=== PATIENT | male | born 1940 | race Caucasian/White ===

== ENCOUNTER 2019-07-01 12:31 | Emergency (ER) | payer MEDICARE, OTHER, SELFPAY ==
[2019-07-01 12:35] VITALS: BP 126/70; PULSE 92; RESP 12; TEMP 36.6; O2SAT 97
--- NOTE | 2019-07-01 12:59 | DI.CT.S_ITS ---
PROCEDURE: CT ABDOMEN PELVIS W CON INDICATIONS: Drainage from prior G-tube insertion site eval for abscess TECHNIQUE: After the administration of oral and intravenous contrast, 5 mm thick sections acquired from the diaphragms to the symphysis. 5 mm thick coronal and sagittal reformats were performed. For radiation dose reduction, the following was used: automated exposure control, adjustment of mA and/or kV according to patient size. COMPARISON: [facility], CT, ABDOMEN/PELVIS WITH CONTRAST, 01/16/2015, 9:15. FINDINGS: Image quality: Excellent. ABDOMEN: Lung bases: Bibasilar small infiltrates/atelectasis is seen. Heart size is normal. Solid organs: Liver is normal in size and enhancement. Gallbladder is surgically absent. Biliary system is chronically distended, unchanged from prior studies dating back to 2014. Pancreas enhances normally. Spleen is normal in size and enhancement. No adrenal nodules. Kidneys are normal in size and enhancement, without hydronephrosis. Peritoneum and bowel: Thickened anterior gastric wall at site of prior G-tube insertion is seen. There is no oral contrast extravasation. Fibrotic scarring in anterior abdominal wall at G-tube site insertion is seen. No discrete drainable fluid collection is identified. There is no bowel obstruction. No small bowel or colon wall thickening. No free fluid or free air. Sigmoid diverticulosis is seen, no CT evidence of diverticulitis. Nodes and vessels: No retroperitoneal or mesenteric adenopathy. Aorta and inferior vena cava are normal in caliber. Miscellaneous: No ventral hernias. PELVIS: Genitourinary: Bladder wall thickness is normal. Miscellaneous: Left inguinal hernia is seen containing fat and small amount of ascites fluid. No inguinal lymphadenopathy. Bones: No suspicious bony lesions. No vertebral body compression fractures. IMPRESSION: 1. Fibrotic changes in left anterior abdominal wall just lateral to the midline at patient's known gastrostomy tube insertion site, small amount of fluid within this area cannot be excluded. No discrete drainable abscess collection. No fistula connection between stomach and abdominal wall is seen. No oral contrast extravasation. 2. Mild anterior gastric wall thickening at the gastrostomy tube insertion site. No other area of bowel wall thickening. No free fluid or free air. 3. Left inguinal hernia containing fat and small amount of ascites fluid. Dictated by: Jamin Tyler M.D. on 07/01/2019 at 15:39 Approved by: Jamin Tyler M.D. on 07/01/2019 at 15:52
[2019-07-01 13:14] LABS: Add Manual Diff / Slide Review NO; Basophils Absolute Auto 0 /uL (0-100); Basophils Percent Auto 0.5 % (0-2); Eosinophils Absolute Auto 0 /uL (0-450); Eosinophils Percent Auto 0.7 % (2-4); Hematocrit 45.5 % (41-53); Hemoglobin 16.1 g/dL (13.5-17.5); Lymphocytes Absolute Auto 700 /uL (1100-4500); Lymphocytes Percent Auto 11.8 % (25-40); Mean Corpuscular HGB Conc 35.3 % (30-36); Mean Corpuscular Hemoglobin 31.7 PG (26-34); Mean Corpuscular Volume 89.7 fL (80-100); Monocytes Absolute Auto 400 /uL (0-900); Monocytes Percent Auto 6.9 % (3-14); Neutrophils Absolute Auto 4800 /uL (1500-7000); Neutrophils Percent Auto 80.1 % (50-75); Platelet Count 175 X10^3/uL (150-400); Red Blood Cell Count 5.08 X10^6/uL (4.5-5.9); Red Cell Distribution Width 14.4 % (11.6-14.8)
--- NOTE | 2019-07-01 13:21 | ED_ITS ---
HPI - General Adult General Chief complaint: Abdominal Pain Stated complaint: Post Op wound Discharge, Sent over from Time Seen by Provider: 07/01/19 12:39 Source: patient Mode of arrival: Ambulatory Limitations: no limitations History of Present Illness HPI narrative: Patient is a 79-year-old male. On December 25, 2018 underwent a laparoscopic paraesophageal hernia repair with mesh and a 270 degree partial fu ndoplication and gastropexy with gastrotomy tube placement. His gastrostomy tube was removed prior to discharge from the hospital. Patient states that the drainage from the site where the tube was placed seem to clear up but then in February of this year he noticed some drainage from it for very short period of time. This also cleared up on its own. Patient states that within the past couple days he noticed more drainage from the area. Has a small amount of pain in the area. Went to an outside facility this morning to have this evaluated but this outside facility stated that they were CT scan was inoperable so the patient was transferred to our emergency department for further evaluation and treatment. Related Data Home Medications Medication Instructions Recorded Confirmed CHOLECALCIFEROL (VITAMIN D) 2,000 iu PO Q DAY #0 07/27/10 aspirin 81 mg PO QDAY #0 12/17/15 Previous Rx's Medication Instructions Recorded fluticasone propionate [Flonase 2 spray INTRANASAL QDAY #1 bot 06/22/16 Allergy Relief] tamsulosin [Flomax] 0.4 mg PO Q DAY #90 cap 08/18/16 finasteride 5 mg PO QDAY #90 tab 09/07/16 lisinopril-hydrochlorothiazide 1 tab PO QDAY #90 tab 11/01/16 cephalexin [Keflex] 1,000 mg PO BID #28 cap 11/03/16 Allergies Allergy/AdvReac Type Severity Reaction Status Date / Time ciprofloxacin [CIPROFLOXACIN] AdvReac Intermediate STOMACH/ELVIRA Verified 07/01/19 15:09 SEA Iodinated Contrast Media AdvReac Intermediate NAUSEA/RALPH Verified 07/01/19 15:09 ING Review of Systems Constitutional Constitutional: Denies fever(s) and Denies headache(s) ENT Ears, Nose, Mouth, and Throat: Denies vertigo and Denies headache(s) Cardiovascular Cardiovascular: Denies chest pain and Denies dyspnea Respiratory Respiratory: Denies dyspnea Gastrointestinal Gastrointestinal: Denies abdominal pain, Denies nausea and Denies vomiting Comments: Drainage from tube site Musculoskeletal Musculoskeletal: Denies myalgias and Denies arthralgias Integumentary/Breasts Comments: Drainage from his G-tube site Neurologic Neurologic: Denies vertigo and Denies headache(s) Hematologic/Lymphatic Hematologic/Lymphatic: Denies easy bleeding and Denies easy bruising Patient History Medical History Acute diverticulitis (Inactive) Essential hypertension (07/15/15) History of cholecystectomy (11/18/15) History of herpes zoster (07/15/15) Thrombocytopenia (07/15/15) UTI (urinary tract infection) (Inactive) Surgical History (Updated 06/12/17 @ 05:19 by Conversion Provider) Status post hernia repair Family History (Updated 07/16/16 @ 00:00 by Conversion Provider) Father Heart disease Hypertension Stroke Social History Smoking Status: Never smoker Smoking Status: Never smoker alcohol intake frequency: other Substance Use Type: does not use Exam Initial Vital Signs Initial Vital Signs: Vital Signs Temperature 97.8 F 07/01/19 12:35 Pulse Rate 92 H 07/01/19 12:35 Respiratory Rate 12 07/01/19 12:35 Blood Pressure 126/70 07/01/19 12:35 Pulse Oximetry 97 07/01/19 12:35 Const General: cooperative and comfortable Limitations: mental status not altered HENMT Head: normal to inspection and normocephalic Resp Effort & Inspection: normal respiratory effort Auscultation: clear to auscultation bilaterally Cardio Rate: regular rate Rhythm: regular rhythm GI Inspection: non-distended Palpation: soft and No firm Skin Other: Left upper quadrant has a small wound consistent with prior G-tube site. Has surrounding granulation tissue. Also has black Neuro General: alert and awake Extrem General: capillary refill normal Psych Appearance: grossly normal and well kempt Course Orders Ordered: ED Orders 07/01/19 12:59 CT abdomen pelvis w con Stat 07/01/19 13:06 Complete Blood Count AUTO DIFF Stat Comprehensive Metabolic Panel Stat Lipase Stat Discontinued Medications Diphenhydramine HCl (Benadryl) 25 mg IV NOW ONE Stop: 07/01/19 13:22 Last Admin: 07/01/19 14:02 Dose: 25 mg Documented by: WIN Sodium Chloride (Normal Saline 0.9%) 1,000 mls @ 1,000 mls/hr IV BOLUS ONE Stop: 07/01/19 13:57 Last Infusion: 07/01/19 15:09 Dose: 0 mls/hr Documented by: Admin: 07/01/19 13:43 Dose: 1,000 mls/hr Documented by: WIN Methylprednisolone (Solu-Medrol 125 Mg Vial) 40 mg IV NOW ONE Stop: 07/01/19 13:22 Last Admin: 07/01/19 14:03 Dose: 40 mg Documented by: WIN Vital Signs Vital signs: Vital Signs - 8 hr 07/01/19 12:35 07/01/19 13:30 07/01/19 15:15 Temperature 97.8 F Pulse Rate 92 H 63 74 Respiratory Rate 12 17 19 Blood Pressure 126/70 Blood Pressure [Right Arm] 142/68 H 151/68 H Pulse Oximetry 97 100 99 Medical Decision Making Lab Data Lab results reviewed: Yes I reviewed the patient's lab results. Result diagrams: 07/01/19 13:06 07/01/19 13:06 Labs: Lab Results 07/01/19 07/01/19 Range/Units 13:06 13:06 WBC 6.0 (4.5-11.0) X10^3/uL RBC 5.08 (4.5-5.9) X10^6/uL Hgb 16.1 (13.5-17.5) g/dL Hct 45.5 (41-53) % MCV 89.7 (80-100) fL MCH 31.7 (26-34) PG MCHC 35.3 (30-36) % RDW 14.4 (11.6-14.8) % Plt Count 175 (150-400) X10^3/uL Neut % (Auto) 80.1 H (50-75) % Lymph % (Auto) 11.8 L (25-40) % [place] % (Auto) 6.9 (3-14) % Eos % (Auto) 0.7 L (2-4) % Baso % (Auto) 0.5 (0-2) % Neut # (Auto) 4800 (2783-3989) /uL Lymph # (Auto) 700 L (5074-7925) /uL [place] # (Auto) 400 (0-900) /uL Eos # (Auto) 0 (0-450) /uL Baso # (Auto) 0 (0-100) /uL Sodium 138 (137-145) mmol/L Potassium 3.8 (3.4-5.1) mmol/L Chloride 104 (98-107) mmol/L Carbon Dioxide 24 (22-32) mmol/L BUN 14 (9-20) mg/dL Creatinine 0.92 (0.66-1.25) mg/dL Estimated GFR > 60.0 (>60) mL/min BUN/Creatinine Ratio 15.2 (6-22) Glucose 149 H (80-110) mg/dL Calcium 9.6 (8.4-10.2) mg/dL Total Bilirubin 1.5 H (0.2-1.3) mg/dL AST 33 (17-59) IU/L ALT 25 (<50) IU/L Alkaline Phosphatase 98 (38-126) U/L Total Protein 7.2 (6.3-8.2) g/dL Albumin 4.3 (3.5-5.0) g/dL Globulin 2.9 (1.7-4.1) g/dL Albumin/Globulin Ratio 1.5 (1.0-2.8) Lipase 22 L (23-300) U/L Imaging Data CT scan - abdomen/pelvis: Radiologist's Impression: [place] [address] CT Scan Report Signed Patient: NaveenAlf R#: [id number] : 1Acct:[id number] Age/Sex: 79 / MDate of Service: 07/01/19 Loc: ED Accession Number: [id number] Procedure: CT abdomen pelvis w con Ordering Provider: Alf Cardenas D.O. PROCEDURE: CT ABDOMEN PELVIS W CON INDICATIONS: Drainage from prior G-tube insertion site eval for abscess TECHNIQUE: After the administration of oral and intravenous contrast, 5 mm thick sections acquired from the diaphragms to the symphysis. 5 mm thick coronal and sagittal reformats were performed. For radiation dose reduction, the following was used: automated exposure control, adjustment of mA and/or kV according to patient size. COMPARISON: [facility], CT, ABDOMEN/PELVIS WITH CONTRAST, 01/16/2015, 9:15. FINDINGS: Image quality: Excellent. ABDOMEN: Lung bases: Bibasilar small infiltrates/atelectasis is seen. Heart size is normal. Solid organs: Liver is normal in size and enhancement. Gallbladder is surgically absent. Biliary system is chronically distended, unchanged from prior studies dating back to 2014. Pancreas enhances normally. Spleen is normal in size and enhancement. No adrenal nodules. Kidneys are normal in size and enhancement, without hydronephrosis. Peritoneum and bowel: Thickened anterior gastric wall at site of prior G-tube insertion is seen. There is no oral contrast extravasation. Fibrotic scarring in anterior abdominal wall at G-tube site insertion is seen. No discrete drainable fluid collection is identified. There is no bowel obstruction. No small bowel or colon wall thickening. No free fluid or free air. Sigmoid diverticulosis is seen, no CT evidence of diverticulitis. Nodes and vessels: No retroperitoneal or mesenteric adenopathy. Aorta and inferior vena cava are normal in caliber. Miscellaneous: No ventral hernias. PELVIS: Genitourinary: Bladder wall thickness is normal. Miscellaneous: Left inguinal hernia is seen containing fat and small amount of ascites fluid. No inguinal lymphadenopathy. Bones: No suspicious bony lesions. No vertebral body compression fractures. IMPRESSION: 1. Fibrotic changes in left anterior abdominal wall just lateral to the midline at patient's known gastrostomy tube insertion site, small amount of fluid within this area cannot be excluded. No discrete drainable abscess collection. No fistula connection between stomach and abdominal wall is seen. No oral contrast extravasation. 2. Mild anterior gastric wall thickening at the gastrostomy tube insertion site. No other area of bowel wall thickening. No free fluid or free air. 3. Left inguinal hernia containing fat and small amount of ascites fluid. Dictated by: Jamin Tyler M.D. on 07/01/2019 at 15:39 Approved by: Jamin Tyler M.D. on 07/01/2019 at 15:52 MDM Narrative Medical decision making narrative: Discussed the CT findings with Dr. Sinha who was on-call for General surgery. He stated that no emergent surgical intervention needed for his clinical presentation or secondary to the CT scan results. Patient is afebrile. No indication for antibiotics. Informed the patient that he needed to contact his operative provider to discuss further workup. He expressed understanding and agreement. Discharge Plan Departure Patient Disposition: Home Clinical Impression: Post-operative complication Qualifiers: Surgical complication system/body Area: [id number] Activity Restrictions/Additional Instructions: Recommend that you contact the surgeon who performed your operation to schedule a follow-up. You do have a small amount of granulation tissue around the opening. I do recommend that you cover this with a bandage. Return to the emergency department for any new or worsening symptoms Prescriptions: No Action CHOLECALCIFEROL (VITAMIN D) 2,000 iu PO Q DAY Qty: 0 RF: 0 aspirin 81 MG tablet,chewable 81 mg PO QDAY Qty: 0 RF: 0 fluticasone propionate [Flonase Allergy Relief] 9.9 ML spray,suspension 2 spray Intranasal QDAY Qty: 1 RF: 1 tamsulosin [Flomax] 0.4 MG capsule,extended release 24hr 0.4 mg PO Q DAY Qty: 90 RF: 1 finasteride 5 MG tablet 5 mg PO QDAY Qty: 90 RF: 0 lisinopril-hydrochlorothiazide 10 MG/12.5 MG tablet 1 tab PO QDAY Qty: 90 RF: 1 cephalexin [Keflex] 500 MG capsule 1,000 mg PO BID Qty: 28 RF: 0
[2019-07-01 13:30] VITALS: BP 142/68; PULSE 63; PULSE 68; RESP 16; RESP 17; O2SAT 100; O2SAT 98
--- NOTE | 2019-07-01 13:35 | PC.NURSE ---
PO contrast started
[2019-07-01] MEDS: SODIUM CHLORIDE 0.9% 1,000 ML 1000 ML IV (13:43)
[2019-07-01] MEDS: diphenhydrAMINE 50 MG/ML VIAL 25 MG IV (14:02)
[2019-07-01] MEDS: methylPREDNISolone 125 MG/2 ML VIAL 40 MG IV (14:03)
[2019-07-01 14:41] LABS: Alanine Aminotransferase 25 IU/L (<50); Albumin 4.3 g/dL (3.5-5.0); Albumin Globulin Ratio 1.5 (1.0-2.8); Alkaline Phosphatase 98 U/L (38-126); Aspartate Aminotransferase 33 IU/L (17-59); BUN Creatinine Ratio 15.2 (6-22); Bilirubin Total 1.5 mg/dL (0.2-1.3); Blood Urea Nitrogen 14 mg/dL (9-20); Calcium 9.6 mg/dL (8.4-10.2); Carbon Dioxide 24 mmol/L (22-32); Chloride 104 mmol/L (98-107); Estimated Glomerular Filt Rate > 60.0 mL/min (>60); Globulin 2.9 g/dL (1.7-4.1); Glucose 149 mg/dL (80-110); HEMOLYSIS 22 (0-50); Lipase 22 U/L (23-300); Potassium 3.8 mmol/L (3.4-5.1); Sodium 138 mmol/L (137-145); Total Protein 7.2 g/dL (6.3-8.2)
[2019-07-01 15:15] VITALS: BP 151/68; PULSE 74; RESP 19; O2SAT 99
[2019-07-01 16:00] VITALS: BP 140/70; PULSE 77; RESP 16; O2SAT 100
[2019-07-01 17:30] VITALS: BP 142/78; PULSE 73; RESP 17; O2SAT 99
== END 2019-07-01 17:50 | disposition home or self-care (01) ==
PROVIDERS: Emergency Provider Emergency Medicine
DX: T81.9XXA Unspecified complication of procedure, initial encounter (principal); G89.18 Other acute postprocedural pain
CPT/HCPCS: 36415; 74177; 80053; 83690; 85025; 96361; 96374; 96375; 99284; 99285; J1200; J2930; Q9967

== ENCOUNTER → 2020-12-13 08:21 | Outpatient (CLI) | payer MEDICARE, OTHER, SELFPAY ==
--- NOTE | 2020-12-13 | DI.NM.S_ITS ---
PROCEDURE: TN BONE SCAN WHOLE BODY RADIOPHARMACEUTICAL: 20.6 mCi Tc-99m MDP IV. INDICATIONS: Malignant neoplasm of prostate TECHNIQUE: Delayed whole-body scintigrams were obtained approximately 3-4 hours after intravenous injection of radiotracer. Anterior and posterior views were acquired from vertex to feet. Additional left and right oblique views of the pelvis were obtained. COMPARISON: Outside Film, CR, XR HUMERUS LEFT, 09/23/2019, 9:02. Outside Film, CT, CT CHEST WITHOUT CONTRAST, 09/23/2019, 8:58. [facility], CT, CT CHEST ABD PEL W CON, 12/13/2020, 9:40. Outside Film, NM, NM BONE SCAN WHOLE BODY, 09/04/2019, 15:37. FINDINGS: There is a small focus of mildly increased uptake in the 7th rib posterior laterally, unchanged. Mildly increased uptake is also seen in the left humeral shaft, also unchanged. Low-level increased uptake in maxilla is likely related to dental disease. No lesions are identified in skull, sternum, clavicles, scapulae, or bony pelvis. There is low level increased uptake in thoracic and lumbar spine with distribution indistinguishable from degenerative disc and facet disease; early metastasis to spine could be obscured by degenerative changes. There are foci of increased periarticular activity involving shoulders, sternoclavicular joints, hips, knees, ankles and feet, compatible with degenerative/arthritic changes. IMPRESSION: 1. Stable foci of mildly increased uptake involving the posterior lateral aspect of the right 7th rib and the left humeral shaft. 2. Degenerative changes as noted. Dictated by: Tevin Cheema M.D. on 12/13/2020 at 14:42 Approved by: Tevin Cheema M.D. on 12/13/2020 at 17:11
--- NOTE | 2020-12-13 | DI.CT.S_ITS ---
PROCEDURE: CT CHEST ABD PEL W CON INDICATIONS: Malignant neoplasm of prostate TECHNIQUE: After the administration of oral and intravenous contrast, axial sections acquired from the supraclavicular neck to the pubic symphysis. Coronal and sagittal reformats were performed. For radiation dose reduction, the following was used: automated exposure control, adjustment of mA and/or kV according to patient size. COMPARISON:[facility], CT, CT CHEST W CON, 09/21/2015, 21:57. Outside Film, NM, NM BONE SCAN WHOLE BODY, 09/04/2019, 15:37. [facility], CT, CT ABDOMEN PELVIS W CON, 07/01/2019, 14:40. Outside Film, CT, CT CHEST ABDOMEN WITHOUT CONTRAST, 12/26/2018, 10:19. Outside Film, CT, CT CHEST WITHOUT CONTRAST, 12/22/2018, 9:01. Outside Film, CT, CT ABDOMEN PELVIS WITH CONTRAST, 12/21/2018, 6:11. Outside Film, CT, CT ABDOMEN PELVIS WITH CONTRAST, 11/06/2017, 18:14. [facility], CT, CT ABD PANCREATIC PROTOCOL, 09/23/2015, 22:26. Outside Film, CT, CT CHEST WITHOUT CONTRAST, 09/23/2019, 8:58. FINDINGS: Image quality: Excellent. CHEST: Lower Neck: No enlarged lymph nodes. Thyroid: Within normal limits. Axillae: No enlarged lymph nodes. Chest Wall: Unremarkable. Lungs and Airways: Areas of scarring granulomas are noted without interval change. No consolidations. More focal area of scarring and/or atelectasis is noted in the right base. Pleura: No pneumothorax or pleural effusions. Heart: Heart size is normal. No pericardial effusion. Thoracic Vessels: The aorta and pulmonary arteries demonstrate normal size. Mediastinum and Sindhu: No enlarged lymph nodes. Esophagus: No wall thickening. Prominent hiatal hernia. ABDOMEN: Liver: Liver is mildly prominent with steatosis. Gallbladder: A gallbladder has been removed. Biliary ducts: Unremarkable. Pancreas: Unremarkable. Spleen: Unremarkable. Adrenal Glands: Unremarkable. Kidneys and Ureters: Nonobstructing left renal calculus is present. Stomach and Bowel: Stomach, small bowel loops, and colon are unremarkable. Prominent colonic stool is present without obstruction. Colonic diverticula are present without inflammatory change. Peritoneum: No abnormal intraperitoneal fluid. No free air. Ventral Wall: No hernia. Abdominal Nodes: No retroperitoneal or mesenteric adenopathy by size criteria. Vessels: Aorta and inferior vena cava are normal in size. PELVIS: Pelvic Organs: Unremarkable. Bladder: Unremarkable. Pelvic Nodes: No enlarged lymph nodes. Miscellaneous: Fat containing inguinal hernias are present. Bones: Previous area of slight lucency within the posterior lateral right 7th rib is unchanged. Lucent focus with peripheral density in the lateral left 7th rib is stable. Unchanged lucency at the anterior aspect of the L3 vertebral body. Hemangioma at T8 is stable. IMPRESSION: 1. Stable interval exam demonstrating no evidence of recurrent or residual disease. 2. Diverticulosis. 3. Unchanged nonobstructing left renal calculus. 4. Mild hepatic prominence with steatosis. Dictated by: Meena Seaman M.D. on 12/13/2020 at 12:26 Approved by: Meena Seaman M.D. on 12/13/2020 at 13:16
[2020-12-13 09:14] LABS: Alanine Aminotransferase 27 IU/L (<50); Albumin 4.2 g/dL (3.5-5.0); Albumin Globulin Ratio 1.6 (1.0-2.8); Alkaline Phosphatase 95 U/L (38-126); Aspartate Aminotransferase 31 IU/L (17-59); BUN Creatinine Ratio 18.2 (6-22); Bilirubin Total 1.2 mg/dL (0.2-1.3); Blood Urea Nitrogen 14 mg/dL (9-20); Calcium 9.7 mg/dL (8.4-10.2); Carbon Dioxide 28 mmol/L (22-32); Chloride 103 mmol/L (98-107); Estimated Glomerular Filt Rate > 60.0 mL/min (>60); Globulin 2.6 g/dL (1.7-4.1); Glucose 109 mg/dL (80-110); HEMOLYSIS < 15 (0-50); Potassium 3.3 mmol/L (3.4-5.1); Sodium 140 mmol/L (137-145); Total Protein 6.8 g/dL (6.3-8.2)
== END ==
PROVIDERS: PCP Family Medicine; Referring Provider Urology; Visit Provider Urology
DX: C61 Malignant neoplasm of prostate (principal); K76.0 Fatty (change of) liver, not elsewhere classified; K57.90 Diverticulosis of intestine, part unspecified, without perforation or abscess without bleeding; N20.0 Calculus of kidney; Z90.49 Acquired absence of other specified parts of digestive tract
CPT/HCPCS: 36415; 71260; 74177; 78306; 80053; A9503

== ENCOUNTER 2021-01-16 13:25 | Emergency (ER) | payer MEDICARE, OTHER, SELFPAY ==
[2021-01-16 13:50] VITALS: BP 167/79; PULSE 94; RESP 19; TEMP 36.5; O2SAT 97; BMI 25.0
--- NOTE | 2021-01-16 14:04 | DI.CT.S_ITS ---
PROCEDURE: CT ABDOMEN PELVIS W CON INDICATIONS: left pelvis, LLq pain radiating to testicle. h/o prostate CA TECHNIQUE: After the administration of oral and IV contrast, axial sections were acquired from the lung bases to the pubic symphysis. Coronal and sagittal reformats were performed. For radiation dose reduction, the following was used: automated exposure control, adjustment of mA and/or kV according to patient size. COMPARISON: [facility], CT, CT ABDOMEN PELVIS W CON, 07/01/2019, 14:40. FINDINGS: Image quality: Excellent. Lung bases: There is mild scarring redemonstrated in the lung bases. Heart: Heart is normal in size. There is a small to moderate hiatal hernia. ABDOMEN: Liver: There is mild focal fatty infiltration anteriorly in the left hepatic lobe. Gallbladder: Gallbladder is surgically absent. Biliary ducts: Unremarkable. Pancreas: Unremarkable. Spleen: Unremarkable. Adrenal Glands: Unremarkable. Kidneys and Ureters: There is a nonobstructing stone within the inferior pole of the left kidney measuring to 0.9 cm. No hydronephrosis. Stomach and Bowel: Stomach and small bowel loops demonstrate normal caliber and wall thickness. There is colonic diverticulosis without definite acute diverticulitis. Mild segmental wall thickening is demonstrated in the sigmoid colon suggestive of a mild colitis. Peritoneum: No abnormal intraperitoneal fluid. No free air. Ventral Wall: No hernia. Abdominal Nodes: No retroperitoneal or mesenteric adenopathy by size criteria. Vessels: Aorta and inferior vena cava are normal in size. PELVIS: Pelvic Organs: Unremarkable. Bladder: Unremarkable. Pelvic Nodes: No enlarged lymph nodes. Miscellaneous: There is a small fat-containing left inguinal hernia. Bones: Visualized osseous structures demonstrate no suspicious focal lesions. IMPRESSION: 1. Segmental wall thickening in the sigmoid colon suggestive of a mild colitis. 2. Colonic diverticulosis without definite acute diverticulitis. 3. Small to moderate hiatal hernia. 4. Left nephrolithiasis without obstructive uropathy. Dictated by: Darinel Villarreal M.D. on 01/16/2021 at 13:55 Approved by: Darinel Villarreal M.D. on 01/16/2021 at 14:02
[2021-01-16 14:26] LABS: Add Manual Diff / Slide Review NO; Basophils Absolute Auto 0 /uL (0-100); Basophils Percent Auto 0.3 % (0-2); Eosinophils Absolute Auto 0 /uL (0-450); Eosinophils Percent Auto 0.5 % (2-4); Hematocrit 45.1 % (41-53); Hemoglobin 15.7 g/dL (13.5-17.5); Lymphocytes Absolute Auto 700 /uL (1100-4500); Lymphocytes Percent Auto 9.2 % (25-40); Mean Corpuscular HGB Conc 34.9 % (30-36); Mean Corpuscular Hemoglobin 30.4 PG (26-34); Mean Corpuscular Volume 87.2 fL (80-100); Monocytes Absolute Auto 300 /uL (0-900); Monocytes Percent Auto 4.4 % (3-14); Neutrophils Absolute Auto 6300 /uL (1500-7000); Neutrophils Percent Auto 85.6 % (50-75); Platelet Count 143 X10^3/uL (150-400); Red Blood Cell Count 5.17 X10^6/uL (4.5-5.9); Red Cell Distribution Width 13.4 % (11.6-14.8); White Blood Cell Count 7.3 X10^3/uL (4.5-11.0)
[2021-01-16 14:37] LABS: Alanine Aminotransferase 37 IU/L (<50); Albumin 4.4 g/dL (3.5-5.0); Albumin Globulin Ratio 1.6 (1.0-2.8); Alkaline Phosphatase 96 U/L (38-126); Aspartate Aminotransferase 34 IU/L (17-59); BUN Creatinine Ratio 16.1 (6-22); Bilirubin Total 1.4 mg/dL (0.2-1.3); Blood Urea Nitrogen 14 mg/dL (9-20); Calcium 10.2 mg/dL (8.4-10.2); Carbon Dioxide 33 mmol/L (22-32); Chloride 105 mmol/L (98-107); Estimated Glomerular Filt Rate > 60.0 mL/min (>60); Globulin 2.7 g/dL (1.7-4.1); Glucose 107 mg/dL (80-110); HEMOLYSIS 16 (0-50); Potassium 3.3 mmol/L (3.4-5.1); Sodium 143 mmol/L (137-145); Total Protein 7.1 g/dL (6.3-8.2)
[2021-01-16] MEDS: SODIUM CHLORIDE 0.9% 1,000 ML 150 ML IV (15:13)
--- NOTE | 2021-01-16 16:32 | ED_ITS ---
HPI - General Adult General Chief complaint: Urogenital-Male Stated complaint: GROIN/PELVIC/LOW BACK PAIN Time Seen by Provider: 01/16/21 14:03 Source: patient Mode of arrival: Family Vehicle Limitations: no limitations History of Present Illness HPI narrative: 80-year-old gentleman with a history of recently diagnosed prostate cancer currently being treated with Lupron presents with left flank pain and left post erior iliac crest pain radiating into the left testicle. He describes no nausea, vomiting, diarrhea, overt abdominal pain, chest pain, palpitations, fevers. Related Data Home Medications Medication Instructions Recorded Confirmed CHOLECALCIFEROL (VITAMIN D) 2,000 iu PO Q DAY #0 07/27/10 08/02/20 aspirin 81 mg chewable tablet 81 mg PO QDAY #0 12/17/15 08/02/20 ascorbic acid (vitamin C) 500 mg 500 mg PO DAILY 05/20/20 08/02/20 tablet (Vitamin C) omega-3 fatty acids 1 cap PO DAILY 05/20/20 08/02/20 vitamin B complex 1 cap PO DAILY 05/20/20 08/02/20 zinc 25 mg tablet 25 mg PO DAILY 05/20/20 08/02/20 Previous Rx's Medication Instructions Recorded fluticasone propionate 50 2 spray INTRANASAL QDAY #1 bot 06/22/16 mcg/actuation nasal spray,suspension (Flonase Allergy Relief) tamsulosin 0.4 mg capsule (Flomax) 0.4 mg PO Q DAY #90 cap 08/18/16 lisinopril 10 1 tab PO QDAY #90 tab 11/01/16 mg-hydrochlorothiazide 12.5 mg tablet amoxicillin 875 mg-potassium 1 tab PO BID #20 tab 01/16/21 clavulanate 125 mg tablet (Augmentin) Allergies Allergy/AdvReac Type Severity Reaction Status Date / Time ciprofloxacin [CIPROFLOXACIN] AdvReac Intermediate STOMACH/ELVIRA Verified 07/01/19 15:09 SEA Iodinated Contrast Media AdvReac Intermediate NAUSEA/RALPH Verified 07/01/19 15:09 ING Review of Systems Review of Systems Narrative: Remainder of complete review of systems is otherwise unremarkable except for that included in the HPI. Patient History Medical History (Updated 01/16/21 @ 16:43 by Zeenat Nguyen MD) Acute diverticulitis Essential hypertension (07/15/15) History of cholecystectomy (11/18/15) History of herpes zoster (07/15/15) Thrombocytopenia (07/15/15) UTI (urinary tract infection) Surgical History (Updated 06/12/17 @ 05:19 by Conversion Provider) Status post hernia repair Family History (Updated 07/16/16 @ 00:00 by Conversion Provider) Father Heart disease Hypertension Stroke Social History Smoking Status: Never smoker alcohol intake: never substance use type: former substance user (stopped at the age of 37 years of age. 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 ) Smoking Status: Never smoker alcohol intake frequency: other Substance Use Type: does not use Exam Narrative Exam Narrative: General: Healthy appearing, in no acute distress. Able to give a complete and coherent history. Well-nourished well-developed HEENT: Moist mucous membranes, normal sclera with reactive pupils, Neck: No JVD, supple Respiratory: Lungs are clear to auscultation, no wheezing no rales no rhonchi. Full and symmetrical air movement Cardiac: Regular rate and rhythm no murmurs no bruits Abdomen: Soft, nontender, good bowel tones, tenderness over left posterior iliac crest, into the left flank, left testicle is high riding but not particularly tender to palpation. No inguinal/groin pain. Skin: Warm and dry, no rashes Neurologic: Grossly neurologically intact with no obvious asymmetries or abnormalities Extremities: No trauma, well perfused Psych: Cooperative, appropriate insight and affect Initial Vital Signs Initial Vital Signs: Vital Signs Temperature 97.7 F 01/16/21 13:50 Pulse Rate 94 H 01/16/21 13:50 Respiratory Rate 19 01/16/21 13:50 Blood Pressure 167/79 H 01/16/21 13:50 Pulse Oximetry 97 01/16/21 13:50 Course Orders Ordered: ED Orders 01/16/21 14:04 CT abdomen pelvis w con Stat 01/16/21 14:10 Complete Blood Count AUTO DIFF Stat Comprehensive Metabolic Panel Stat Sodium Chloride (Normal Saline 0.9%) 1,000 mls @ 150 mls/hr IV CONT MICHI Last Admin: 01/16/21 15:13 Dose: 150 mls/hr Documented by: ANAYELI Vital Signs Vital signs: Vital Signs - 8 hr 01/16/21 13:50 Temperature 97.7 F Pulse Rate 94 H Respiratory Rate 19 Blood Pressure 167/79 H Pulse Oximetry 97 Medical Decision Making Lab Data Result diagrams: 01/16/21 14:10 01/16/21 14:10 Labs: Lab Results 01/16/21 01/16/21 Range/Units 14:10 14:10 WBC 7.3 (4.5-11.0) X10^3/uL RBC 5.17 (4.5-5.9) X10^6/uL Hgb 15.7 (13.5-17.5) g/dL Hct 45.1 (41-53) % MCV 87.2 (80-100) fL MCH 30.4 (26-34) PG MCHC 34.9 (30-36) % RDW 13.4 (11.6-14.8) % Plt Count 143 L (150-400) X10^3/uL Neut % (Auto) 85.6 H (50-75) % Lymph % (Auto) 9.2 L (25-40) % Elliott % (Auto) 4.4 (3-14) % Eos % (Auto) 0.5 L (2-4) % Baso % (Auto) 0.3 (0-2) % Neut # (Auto) 6300 (8639-0913) /uL Lymph # (Auto) 700 L (3540-6269) /uL Elliott # (Auto) 300 (0-900) /uL Eos # (Auto) 0 (0-450) /uL Baso # (Auto) 0 (0-100) /uL Sodium 143 (137-145) mmol/L Potassium 3.3 L (3.4-5.1) mmol/L Chloride 105 (98-107) mmol/L Carbon Dioxide 33 H (22-32) mmol/L BUN 14 (9-20) mg/dL Creatinine 0.87 (0.66-1.25) mg/dL Estimated GFR > 60.0 (>60) mL/min BUN/Creatinine Ratio 16.1 (6-22) Glucose 107 (80-110) mg/dL Calcium 10.2 (8.4-10.2) mg/dL Total Bilirubin 1.4 H (0.2-1.3) mg/dL AST 34 (17-59) IU/L ALT 37 (<50) IU/L Alkaline Phosphatase 96 (38-126) U/L Total Protein 7.1 (6.3-8.2) g/dL Albumin 4.4 (3.5-5.0) g/dL Globulin 2.7 (1.7-4.1) g/dL Albumin/Globulin Ratio 1.6 (1.0-2.8) Imaging Data CT scan - abdomen/pelvis: Radiologist's Impression: FINDINGS:? Image quality:? Excellent.? ? Lung bases:? There is mild scarring redemonstrated in the lung bases.? ? Heart:? Heart is normal in size.? There is a small to moderate hiatal hernia. ? ? ABDOMEN: Liver:? There is mild focal fatty infiltration anteriorly in the left hepatic lobe. Gallbladder:? Gallbladder is surgically absent.? ? Biliary ducts:? Unremarkable.? ? Pancreas:? Unremarkable.? ? Spleen:? Unremarkable.? ? Adrenal Glands:? Unremarkable.? ? Kidneys and Ureters:? There is a nonobstructing stone within the inferior pole of the left kidney measuring to 0.9 cm.? No hydronephrosis. ? Stomach and Bowel:? Stomach and small bowel loops demonstrate normal caliber and wall thickness.? There is colonic diverticulosis without definite acute diverticulitis.? Mild segmental wall thickening is demonstrated in the sigmoid colon suggestive of a mild colitis. Peritoneum:? No abnormal intraperitoneal fluid.? No free air.? ? Ventral Wall: ? No hernia.? Abdominal Nodes:? No retroperitoneal or mesenteric adenopathy by size criteria.? Vessels:? Aorta and inferior vena cava are normal in size.? ? PELVIS: Pelvic Organs:? Unremarkable.? ? Bladder:? Unremarkable.? ? Pelvic Nodes: No enlarged lymph nodes.? Miscellaneous:? There is a small fat-containing left inguinal hernia. ? Bones:? Visualized osseous structures demonstrate no suspicious focal lesions.? IMPRESSION:? ? 1. Segmental wall thickening in the sigmoid colon suggestive of a mild colitis. ? 2. Colonic diverticulosis without definite acute diverticulitis. ? 3. Small to moderate hiatal hernia. ? 4.? Left nephrolithiasis without obstructive uropathy. ? ? Dictated by: Darinel Villarreal M.D. on 01/16/2021 at 13:55? ?? MDM Narrative Medical decision making narrative: 80-year-old gentleman with left flank pain. Recent diagnosis of prostate cancer and due for his Lupron shot tomorrow. On physical exam concern for bony metastasis verses pyelonephritis verses kidney stone. CT returns with left nephro lithiasis (0.9 cm stone in the inferior pole of the kidney) without obstructive uropathy and a probable developing colitis. He does have a history of diverticulitis and when this possibility a shared with him he agrees that that is in fact what his diverticulitis has felt like previously. At this point there is no evidence of sepsis, pyelonephritis or need for surgical intervention or hospitalization. He has not tolerated Cipro well in the past so will place him on Augmentin b.i.d. for 10 days. He is safe for home discharge Discharge Plan Departure Patient Disposition: Home Clinical Impression: Diverticulitis Instructions: DI for Diverticulitis Activity Restrictions/Additional Instructions: Thank you for coming in today Your lab work was very reassuring. Your CT scan suggests that you may be developing a mild colitis or diverticulitis in the left lower quadrant. There is no evidence of an abscess, kidney stone or kidney infection. I am going to start you on Augmentin, and antibiotic to be taken twice a day for the next 10 days. If you find that you are getting worse, please return to the ER. Prescriptions: New amoxicillin-pot clavulanate [Augmentin] 875-125 mg tablet 1 tab PO BID Qty: 20 0RF No Action CHOLECALCIFEROL (VITAMIN D) 2,000 iu PO Q DAY Qty: 0 0RF aspirin 81 MG tablet,chewable 81 mg PO QDAY Qty: 0 0RF fluticasone propionate [Flonase Allergy Relief] 9.9 ML spray,suspension 2 spray Intranasal QDAY Qty: 1 1RF tamsulosin [Flomax] 0.4 MG capsule,extended release 24hr 0.4 mg PO Q DAY Qty: 90 1RF lisinopril-hydrochlorothiazide 10 MG/12.5 MG tablet 1 tab PO QDAY Qty: 90 1RF ascorbic acid (vitamin C) [Vitamin C] 500 mg Tablet 500 mg PO DAILY 0RF zinc 25 mg Tablet 25 mg PO DAILY 0RF vitamin B complex [B Complex] Capsule 1 cap PO DAILY 0RF Fish Oil Capsule 1 cap PO DAILY 0RF Referrals: Kenton Jacob MD [Primary Care Provider] -
[2021-01-16] MEDS: AMOXICILLIN/CLAV 875/125 MG 1 TAB PO (16:51)
[2021-01-16 19:18] LABS: Appearance Urine UA CLEAR; Bilirubin Urine UA NEGATIVE (NEGATIVE); Color Urine UA YELLOW; Glucose Urine UA NEGATIVE (Negative); Ketones Urine UA NEGATIVE (NEGATIVE); Leukocyte Esterase Urine UA NEGATIVE (NEGATIVE); Nitrite Urine UA NEGATIVE (Negative); Occult Blood Urine UA NEGATIVE (Negative); Protein Urine UA NEGATIVE (Negative); Urobilinogen Urine UA 0.2 E.U./dL (0.2)
[2021-01-16 19:27] LABS: Calcium Oxalate Crystals Urine Few; RBC Urine None Seen (0-5/HPF); Squamous Epithelial Cell Urine 0-1 /HPF (0-5/HPF); WBC Urine None Seen (0-5/HPF)
[2021-01-16 19:28] LABS: Bacteria Urine None Seen; Culture Indicated Urine Cult Not Indicated; Mucus Urine 1+ (Negative); Uric Acid Crystals Urine Few
== END 2021-01-16 16:56 | disposition home or self-care (01) ==
PROVIDERS: Emergency Provider Emergency Medicine; PCP Family Medicine
DX: K57.32 Diverticulitis of large intestine without perforation or abscess without bleeding (principal)
CPT/HCPCS: 36415; 74177; 80053; 81001; 81003; 85025; 96360; 96361; 99284; Q9967

== ENCOUNTER 2021-02-17 13:58 | Emergency (ER) | payer MEDICARE, OTHER, SELFPAY ==
[2021-02-17 14:35] VITALS: BP 131/57; PULSE 94; RESP 14; TEMP 36.2; O2SAT 96; BMI 25.8
--- NOTE | 2021-02-17 19:21 | ED.NAVMDI ---
HPI - Nausea/Vomiting/Diarrhea General Chief complaint: Nausea/Vomiting/Diarrhea Stated complaint: NVD Time Seen by Provider: 02/17/21 19:10 Source: patient Mode of arrival: Ambulatory History of Present Illness HPI Narrative: Patient is an 80-year-old male with history of prostate cancer currently on Lupron treatment. History of has had 1 episode of vomiting today couple episodes of diarrhea. Sherrill like he might pass out earlier today. He maybe ate some bad food but he actually opened new cream cheese steal cut Reji and a new milk container. [place] come into the ED. He has had no further episodes of nausea vomiting. He has had a little bit of diarrhea no significant abdominal pain. He denies any chest pain shortness of breath or fever. He has not had anything to eat since 10:00 a.m. but is overall feeling better and has kept liquids down. Related Data Home Medications Medication Instructions Recorded Confirmed CHOLECALCIFEROL (VITAMIN D) 2,000 iu PO Q DAY #0 07/27/10 08/02/20 aspirin 81 mg chewable tablet 81 mg PO QDAY #0 12/17/15 08/02/20 ascorbic acid (vitamin C) 500 mg 500 mg PO DAILY 05/20/20 08/02/20 tablet (Vitamin C) omega-3 fatty acids 1 cap PO DAILY 05/20/20 08/02/20 vitamin B complex 1 cap PO DAILY 05/20/20 08/02/20 zinc 25 mg tablet 25 mg PO DAILY 05/20/20 08/02/20 Previous Rx's Medication Instructions Recorded fluticasone propionate 50 2 spray INTRANASAL QDAY #1 bot 06/22/16 mcg/actuation nasal spray,suspension (Flonase Allergy Relief) tamsulosin 0.4 mg capsule (Flomax) 0.4 mg PO Q DAY #90 cap 08/18/16 lisinopril 10 1 tab PO QDAY #90 tab 11/01/16 mg-hydrochlorothiazide 12.5 mg tablet amoxicillin 875 mg-potassium 1 tab PO BID #20 tab 01/16/21 clavulanate 125 mg tablet (Augmentin) Allergies Allergy/AdvReac Type Severity Reaction Status Date / Time ciprofloxacin [CIPROFLOXACIN] AdvReac Intermediate STOMACH/ELVIRA Verified 02/17/21 14:35 SEA Iodinated Contrast Media AdvReac Intermediate NAUSEA/RALPH Verified 02/17/21 14:35 ING Review of Systems Review of Systems Narrative: GENERAL: Denies chills, fatigue, malaise, fever, sweats, travel HEENT: Denies sinus pain, ear pain, sore throat, difficulty swallowing, neck pain RESPIRATORY: Denies dyspnea, cough, wheezing, hemoptysis, sputum. CARDIOVASCULAR: Denies chest pain, palpitations, orthopnea, edema GASTROINTESTINAL: See HPI : Denies dysuria, frequency, incontinence, hematuria, urinary retention, flank pain. MUSCULOSKELETAL: Denies weakness, joint pain, or bony pain SKIN: No rash, no erythema, no pruritus NEUROLOGIC: Denies weakness, dizziness, headache, numbness, change in speech, confusion PSYCHIATRIC: No concerning psychosocial issues. 12 point review of systems is negative except for those stated above and HPI Patient History Medical History (Updated 02/17/21 @ 20:42 by Addie Taylor DO) Acute diverticulitis Essential hypertension (07/15/15) History of cholecystectomy (11/18/15) History of herpes zoster (07/15/15) Thrombocytopenia (07/15/15) UTI (urinary tract infection) Surgical History (Updated 06/12/17 @ 05:19 by Conversion Provider) Status post hernia repair Family History (Updated 07/16/16 @ 00:00 by Conversion Provider) Father Heart disease Hypertension Stroke Social History Smoking Status: Never smoker alcohol intake: never substance use type: former substance user (stopped at the age of 37 years of age. 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 ) Smoking Status: Never smoker alcohol intake frequency: other Substance Use Type: does not use Exam Initial Vital Signs Initial Vital Signs: Vital Signs Temperature 97.2 F L 02/17/21 14:35 Pulse Rate 94 H 02/17/21 14:35 Respiratory Rate 14 02/17/21 14:35 Blood Pressure 131/57 L 02/17/21 14:35 Pulse Oximetry 96 02/17/21 14:35 GENERAL: Alert well-appearing 80-year-old male HEENT: Head atraumatic,EOMI, pupils reactive, face symmetric, moist mucous membranes CARDIOVASCULAR: Regular rate and rhythm without murmurs, rubs or gallops. RESPIRATORY: Breath sounds equal bilaterally, no wheezes rales or rhonchi. ABDOMEN: Soft, nontender. Normoactive bowel sounds all 4 quadrants. No guarding or rebound. EXTREMITIES: Normal range of motion, no clubbing or edema. Neurovascularly intact NEUROLOGICAL: Alert and oriented x4.Normal gait and speech. SKIN: Warm, dry, no laceration, no petechiae, no rashes or lesions. Course Orders Ordered: ED Orders 02/17/21 20:02 CBC Auto Diff [Complete Blood Count AUTO DIFF] Stat CMP [Comprehensive Metabolic Panel] Stat Discontinued Medications Sodium Chloride (Normal Saline 0.9%) 1,000 mls @ 1,000 mls/hr IV BOLUS ONE Stop: 02/17/21 20:16 Last Infusion: 02/17/21 20:50 Dose: 0 mls/hr Documented by: Admin: 02/17/21 19:36 Dose: 1,000 mls/hr Documented by: INDY Vital Signs Vital signs: Vital Signs - 8 hr 02/17/21 19:30 02/17/21 20:30 Pulse Rate 78 66 Respiratory Rate 18 18 Blood Pressure 138/70 133/72 Pulse Oximetry 98 98 MDM - Nausea/Vomiting/Diarrhea Lab Data Result diagrams: 02/17/21 20:02 02/17/21 20:02 Labs: Lab Results 02/17/21 02/17/21 Range/Units 20:02 20:02 WBC 9.7 (4.5-11.0) X10^3/uL RBC 4.81 (4.5-5.9) X10^6/uL Hgb 14.7 (13.5-17.5) g/dL Hct 42.1 (41-53) % MCV 87.7 (80-100) fL MCH 30.6 (26-34) PG MCHC 34.9 (30-36) % RDW 13.2 (11.6-14.8) % Plt Count 126 L (150-400) X10^3/uL Neut % (Auto) 89.2 H (50-75) % Lymph % (Auto) 4.3 L (25-40) % Fajardo % (Auto) 6.1 (3-14) % Eos % (Auto) 0.4 L (2-4) % Baso % (Auto) 0.0 (0-2) % Neut # (Auto) 8700 H (1807-8352) /uL Lymph # (Auto) 400 L (1802-4403) /uL Fajardo # (Auto) 600 (0-900) /uL Eos # (Auto) 0 (0-450) /uL Baso # (Auto) 0 (0-100) /uL Sodium 138 (137-145) mmol/L Potassium 3.6 (3.4-5.1) mmol/L Chloride 104 (98-107) mmol/L Carbon Dioxide 29 (22-32) mmol/L BUN 15 (9-20) mg/dL Creatinine 0.91 (0.66-1.25) mg/dL Estimated GFR > 60.0 (>60) mL/min BUN/Creatinine Ratio 16.5 (6-22) Glucose 126 H (80-110) mg/dL Calcium 9.4 (8.4-10.2) mg/dL Total Bilirubin 1.9 H (0.2-1.3) mg/dL AST 27 (17-59) IU/L ALT 24 (<50) IU/L Alkaline Phosphatase 74 (38-126) U/L Total Protein 6.2 L (6.3-8.2) g/dL Albumin 3.7 (3.5-5.0) g/dL Globulin 2.5 (1.7-4.1) g/dL Albumin/Globulin Ratio 1.5 (1.0-2.8) MDM Narrative Medical decision making narrative: Patient is overall feeling significantly better. He has not had significant fluid loss. Tolerating p.o. fluids. Abdomen remains soft at this time no indication for any imaging. He is having both vomiting and diarrhea consistent with gastroenteritis. Discharge Plan Departure Patient Disposition: Home Clinical Impression: Gastroenteritis Instructions: DI for Viral Gastroenteritis -- Adult Activity Restrictions/Additional Instructions: 1) You have been diagnosed with gastroenteritis 2) What to do: Drink frequent but small amounts of fluids. I recommend Gatorade or a Gatorade-like product, as it has small amounts of sugar and salts that improve fluid retention. 3) Take medications as directed 4) Follow up with your primary care provider in 2-3 days 5) Return to ER if you should have any new or worsening symptoms such as, unable to hold down fluids despite use of anti-nausea medications and the small volume oral rehydration strategy. Prescriptions: No Action CHOLECALCIFEROL (VITAMIN D) 2,000 iu PO Q DAY Qty: 0 0RF aspirin 81 MG tablet,chewable 81 mg PO QDAY Qty: 0 0RF fluticasone propionate [Flonase Allergy Relief] 9.9 ML spray,suspension 2 spray Intranasal QDAY Qty: 1 1RF tamsulosin [Flomax] 0.4 MG capsule,extended release 24hr 0.4 mg PO Q DAY Qty: 90 1RF lisinopril-hydrochlorothiazide 10 MG/12.5 MG tablet 1 tab PO QDAY Qty: 90 1RF ascorbic acid (vitamin C) [Vitamin C] 500 mg Tablet 500 mg PO DAILY 0RF zinc 25 mg Tablet 25 mg PO DAILY 0RF vitamin B complex [B Complex] Capsule 1 cap PO DAILY 0RF Fish Oil Capsule 1 cap PO DAILY 0RF amoxicillin-pot clavulanate [Augmentin] 875-125 mg tablet 1 tab PO BID Qty: 20 0RF Referrals: Kenton Jacob MD [Primary Care Provider] -
[2021-02-17 19:30] VITALS: BP 138/70; PULSE 78; RESP 18; O2SAT 98
[2021-02-17] MEDS: SODIUM CHLORIDE 0.9% 1,000 ML 1000 ML IV (19:36)
[2021-02-17 20:13] LABS: Add Manual Diff / Slide Review NO; Basophils Absolute Auto 0 /uL (0-100); Eosinophils Absolute Auto 0 /uL (0-450); Eosinophils Percent Auto 0.4 % (2-4); Hematocrit 42.1 % (41-53); Hemoglobin 14.7 g/dL (13.5-17.5); Lymphocytes Absolute Auto 400 /uL (1100-4500); Lymphocytes Percent Auto 4.3 % (25-40); Mean Corpuscular HGB Conc 34.9 % (30-36); Mean Corpuscular Hemoglobin 30.6 PG (26-34); Mean Corpuscular Volume 87.7 fL (80-100); Monocytes Absolute Auto 600 /uL (0-900); Monocytes Percent Auto 6.1 % (3-14); Neutrophils Absolute Auto 8700 /uL (1500-7000); Neutrophils Percent Auto 89.2 % (50-75); Platelet Count 126 X10^3/uL (150-400); Red Blood Cell Count 4.81 X10^6/uL (4.5-5.9); Red Cell Distribution Width 13.2 % (11.6-14.8); White Blood Cell Count 9.7 X10^3/uL (4.5-11.0)
[2021-02-17 20:22] LABS: Alanine Aminotransferase 24 IU/L (<50); Albumin 3.7 g/dL (3.5-5.0); Albumin Globulin Ratio 1.5 (1.0-2.8); Alkaline Phosphatase 74 U/L (38-126); Aspartate Aminotransferase 27 IU/L (17-59); BUN Creatinine Ratio 16.5 (6-22); Bilirubin Total 1.9 mg/dL (0.2-1.3); Blood Urea Nitrogen 15 mg/dL (9-20); Calcium 9.4 mg/dL (8.4-10.2); Carbon Dioxide 29 mmol/L (22-32); Chloride 104 mmol/L (98-107); Estimated Glomerular Filt Rate > 60.0 mL/min (>60); Globulin 2.5 g/dL (1.7-4.1); Glucose 126 mg/dL (80-110); HEMOLYSIS < 15 (0-50); Potassium 3.6 mmol/L (3.4-5.1); Sodium 138 mmol/L (137-145); Total Protein 6.2 g/dL (6.3-8.2)
[2021-02-17 20:30] VITALS: BP 133/72; PULSE 66; RESP 18; O2SAT 98
== END 2021-02-17 20:55 | disposition home or self-care (01) ==
PROVIDERS: Emergency Provider Emergency Medicine; PCP Family Medicine
DX: K52.9 Noninfective gastroenteritis and colitis, unspecified (principal)
CPT/HCPCS: 36415; 80053; 85025; 96360; 99283; 99284

== ENCOUNTER 2021-04-11 10:30 | Emergency (ER) | payer MEDICARE, OTHER, SELFPAY ==
[2021-04-11] VITALS (9 sets, daily range): BP systolic 107–172; BP diastolic 60–88; PULSE 69–86; RESP 14–36; TEMP 36.6; O2SAT 96–99
--- NOTE | 2021-04-11 10:54 | DI.RAD.S_ITS ---
PROCEDURE: XR CHEST 1V INDICATIONS: chest pain TECHNIQUE: One view of the chest was acquired. COMPARISON: [facility], JUDD, CHEST 2 VIEW, 04/13/2014, 11:09. FINDINGS: Surgical changes and devices: None. Lungs and pleura: Lungs are clear. No pleural effusions or pneumothorax. Mediastinum: Mediastinal contours appear normal. Heart size is normal. Bones and chest wall: No suspicious bony lesions. Overlying soft tissues appear unremarkable. IMPRESSION: No acute cardiopulmonary findings Approved by: Aravind Bah M.D. on 04/11/2021 at 11:09
[2021-04-11 11:04] LABS: Add Manual Diff / Slide Review NO; Basophils Absolute Auto 0 /uL (0-100); Basophils Percent Auto 0.5 % (0-2); Eosinophils Absolute Auto 100 /uL (0-450); Eosinophils Percent Auto 1.7 % (2-4); Hematocrit 42.7 % (41-53); Hemoglobin 14.4 g/dL (13.5-17.5); Lymphocytes Absolute Auto 800 /uL (1100-4500); Lymphocytes Percent Auto 15.1 % (25-40); Mean Corpuscular HGB Conc 33.7 % (30-36); Mean Corpuscular Hemoglobin 29.9 PG (26-34); Mean Corpuscular Volume 88.6 fL (80-100); Monocytes Absolute Auto 300 /uL (0-900); Monocytes Percent Auto 5.6 % (3-14); Neutrophils Absolute Auto 4300 /uL (1500-7000); Neutrophils Percent Auto 77.1 % (50-75); Platelet Count 162 X10^3/uL (150-400); Red Blood Cell Count 4.82 X10^6/uL (4.5-5.9); Red Cell Distribution Width 13.4 % (11.6-14.8); White Blood Cell Count 5.5 X10^3/uL (4.5-11.0)
[2021-04-11 11:06] LABS: Prothrombin Time 10.8 SECONDS (10.1-12.7)
[2021-04-11 11:09] LABS: PTT Partial Thromboplastin Tim 24 SECONDS (26.4-36.2)
[2021-04-11 11:10] LABS: Alanine Aminotransferase 25 IU/L (<50); Albumin 3.8 g/dL (3.5-5.0); Albumin Globulin Ratio 1.5 (1.0-2.8); Alkaline Phosphatase 73 U/L (38-126); Aspartate Aminotransferase 30 IU/L (17-59); BUN Creatinine Ratio 18.9 (6-22); Blood Urea Nitrogen 18 mg/dL (9-20); Calcium 9.5 mg/dL (8.4-10.2); Carbon Dioxide 28 mmol/L (22-32); Chloride 107 mmol/L (98-107); Creatine Kinase 63 U/L (55-170); Estimated Glomerular Filt Rate > 60.0 mL/min (>60); Globulin 2.6 g/dL (1.7-4.1); Glucose 149 mg/dL (80-110); HEMOLYSIS 20 (0-50); Lipase 40 U/L (23-300); Magnesium 2.3 mg/dL (1.6-2.3); Potassium 3.2 mmol/L (3.4-5.1); Sodium 140 mmol/L (137-145); Total Protein 6.4 g/dL (6.3-8.2)
[2021-04-11 11:22] LABS: Troponin I < 0.012 ng/mL (0.01-0.034)
--- NOTE | 2021-04-11 11:24 | PC.NURSE ---
Tammy CARTYW called, Laura CARTYW at oncology to F/U regarding appointment transportation troubles.
--- NOTE | 2021-04-11 11:26 | PC.NURSE ---
Happened with BM
--- NOTE | 2021-04-11 11:27 | CM.SWNOTE ---
[facility] ED consult received for pt in the ER due to difficulty getting to appointments and pt just started with [facility] AYALA with Dr. Gonsales and lives on [address]. SW called Laura, Oncologist TAB[facility] TYPIST and she kindly confirms that she is willing to look into the pt's needs and help provide him with resources if she can. BERTA called ED RN and updated on Onc TABULAR TYPIST to f/u with pt's needs. FRANCESCA Longo
[2021-04-11 12:00] LABS: COVID19 -Nasal RAPID Negative (Negative)
--- NOTE | 2021-04-11 20:45 | ED_ITS ---
HPI - Dizziness <Reanna Elias PA-C - Last Filed: 04/12/21 13:15> General Chief Complaint: Syncope Stated Complaint: Diarrhea, dizzy, feeling faint Time Seen by Provider: 04/11/21 12:11 Source: patient Mode of arrival: Ambulatory History of Present Illness HPI Narrative: 81-year-old male with past medical history prostate cancer, hyperlipidemia presents to the ED for lightheadedness for 1 day. Patient states that he had a [place] and something sweet to eat which he does not usually eat, following which he started feeling lightheaded, sweaty and felt like he needed to have a bowel movement. Patient went to the bathroom, had some diarrhea, continue to feel lightheaded for the next 20 minutes, after which his symptoms all resolved. Patient denies any other symptoms including fever, chills, chest pain, shortness of breath, nausea, vomiting, abdominal pain, dysuria, flank pain, syncope. Patient denies prior episodes of lightheadedness. Patient states that he gets Lupron shots for the prostate cancer, which give him milder symptoms such as hot flashes, and he feels that today's episode just felt like a more intense version of those. Related Data Home Medications Medication Instructions Recorded Confirmed CHOLECALCIFEROL (VITAMIN D) 2,000 iu PO Q DAY #0 07/27/10 04/11/21 aspirin 81 mg chewable tablet 81 mg PO QDAY #0 12/17/15 04/11/21 ascorbic acid (vitamin C) 500 mg 500 mg PO DAILY 05/20/20 04/11/21 tablet (Vitamin C) omega-3 fatty acids 1 cap PO DAILY 05/20/20 04/11/21 vitamin B complex 1 cap PO DAILY 05/20/20 04/11/21 zinc 25 mg tablet 25 mg PO DAILY 05/20/20 04/11/21 Previous Rx's Medication Instructions Recorded fluticasone propionate 50 2 spray INTRANASAL QDAY #1 bot 06/22/16 mcg/actuation nasal spray,suspension (Flonase Allergy Relief) tamsulosin 0.4 mg capsule (Flomax) 0.4 mg PO Q DAY #90 cap 08/18/16 lisinopril 10 1 tab PO QDAY #90 tab 11/01/16 mg-hydrochlorothiazide 12.5 mg tablet Allergies Allergy/AdvReac Type Severity Reaction Status Date / Time ciprofloxacin [CIPROFLOXACIN] AdvReac Intermediate STOMACH/ELVIRA Verified 02/17/21 14:35 SEA Iodinated Contrast Media AdvReac Intermediate NAUSEA/RALPH Verified 02/17/21 14:35 ING Review of Systems <Reanna Elias PA-C - Last Filed: 04/12/21 13:15> Review of Systems Narrative: Lightheaded, sweaty, diarrhea ROS Unobtainable: All systems reviewed & are unremarkable except as noted in HPI and below Constitutional Constitutional: Denies chills, Denies fatigue, Denies fever(s), Denies frequent falls, Denies lethargy and Denies weakness Eyes Eyes: Denies change in vision, Denies eye discharge, Denies irritation and Denies loss of vision ENT Ears, Nose, Mouth, and Throat: Denies change in voice, Denies dizziness, Denies neck pain, Denies sore throat and Denies throat swelling Cardiovascular Cardiovascular: Denies chest pain, Denies irregular heart rhythm, Denies lightheadedness, Denies palpitations, Denies dyspnea, Denies dyspnea on exertion and Denies orthopnea Respiratory Respiratory: Denies cough, Denies dyspnea, Denies dyspnea on exertion and Denies wheezing Gastrointestinal Gastrointestinal: Denies abdominal pain, Denies change in bowel habits, Reports diarrhea, Denies nausea and Denies vomiting Genitourinary Genitourinary: Denies hematuria, Denies flank pain, Denies urinary incontinence and Denies urinary urgency Musculoskeletal Musculoskeletal: Denies back pain, Denies muscle weakness, Denies neck pain, Denies numbness and Denies tingling Integumentary/Breasts Skin/Breast: Denies pruritus, Denies erythema, Denies rash and Denies wounds Neurologic Neurologic: Denies behavioral changes, Denies confusion, Denies dizziness, Denies frequent falls, Denies loss of vision, Denies numbness, Denies tingling and Denies weakness Psychiatric Psychiatric: Denies anxiety, Denies behavioral changes, Denies confusion, Denies depression, Denies homicidal ideation and Denies suicidal ideation Endocrine Endocrine: Denies fatigue, Denies flushing and Denies palpitations Hematologic/Lymphatic Hematologic/Lymphatic: Denies easy bruising Allergic/Immunologic Allergic/Immunologic: Denies urticaria, Denies throat swelling and Denies wheezing Patient History <Reanna Elias PA-C - Last Filed: 04/12/21 13:15> Medical History Acute diverticulitis Essential hypertension (07/15/15) History of cholecystectomy (11/18/15) History of herpes zoster (07/15/15) Thrombocytopenia (07/15/15) UTI (urinary tract infection) Surgical History Status post hernia repair Family History Father Heart disease Hypertension Stroke Social History Smoking Status: Never smoker alcohol intake: never substance use type: former substance user (stopped at the age of 37 years of ag e. 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 ) Smoking Status: Never smoker alcohol intake frequency: other Substance Use Type: does not use Exam <Reanna Elias PA-C - Last Filed: 04/12/21 13:15> Initial Vital Signs Initial Vital Signs: Vital Signs Temperature 97.8 F 04/11/21 10:35 Pulse Rate 85 04/11/21 10:35 Respiratory Rate 18 04/11/21 10:35 Blood Pressure 118/66 04/11/21 10:35 Pulse Oximetry 98 04/11/21 10:35 Const General: cooperative, healthy appearing and comfortable HENMI Head: normal to inspection Eyes General: appearance normal, both eyes and all related structures Neck Neck: normal visual inspection Chest Chest: normal inspection of the chest Resp Effort & Inspection: normal respiratory effort Auscultation: clear to auscultation bilaterally Cardio Rate: regular rate Rhythm: regular rhythm GI Other: Abdomen is soft, nondistended, nontender to palpation. No CVA tenderness. General: No CVA tenderness Skin General: no rashes or lesions noted Neuro General: patient alert, patient awake and patient oriented x3 Psych Appearance: grossly normal Mental Status: mental status grossly normal <Miranda Suárez DO - Last Filed: 04/15/21 19:07> Initial Vital Signs Initial Vital Signs: Vital Signs Temperature 97.8 F 04/11/21 10:35 Pulse Rate 85 04/11/21 10:35 Respiratory Rate 18 04/11/21 10:35 Blood Pressure 118/66 04/11/21 10:35 Pulse Oximetry 98 04/11/21 10:35 Course <Reanna Elias PA-C - Last Filed: 04/12/21 13:15> Vital Signs Vital signs: Vital Signs - 8 hr 04/11/21 13:00 Pulse Rate 82 Respiratory Rate 36 H Blood Pressure 172/88 H Pulse Oximetry 99 <Miranda Hima Suárez DO - Last Filed: 04/15/21 19:07> Vital Signs Vital signs: Vital Signs - 8 hr 04/11/21 13:00 Pulse Rate 82 Respiratory Rate 36 H Blood Pressure 172/88 H Pulse Oximetry 99 MDM - Dizziness <Reanna Elias PA-C - Last Filed: 04/12/21 13:15> Lab Data Result diagrams: 04/11/21 10:50 04/11/21 10:50 Labs: Lab Results 04/11/21 04/11/21 04/11/21 Range/Units 10:50 10:50 10:50 WBC 5.5 (4.5-11.0) X10^3/uL RBC 4.82 (4.5-5.9) X10^6/uL Hgb 14.4 (13.5-17.5) g/dL Hct 42.7 (41-53) % MCV 88.6 (80-100) fL MCH 29.9 (26-34) PG MCHC 33.7 (30-36) % RDW 13.4 (11.6-14.8) % Plt Count 162 (150-400) X10^3/uL Neut % (Auto) 77.1 H (50-75) % Lymph % (Auto) 15.1 L (25-40) % [place] % (Auto) 5.6 (3-14) % Eos % (Auto) 1.7 L (2-4) % Baso % (Auto) 0.5 (0-2) % Neut # (Auto) 4300 (0965-6723) /uL Lymph # (Auto) 800 L (7363-0287) /uL [place] # (Auto) 300 (0-900) /uL Eos # (Auto) 100 (0-450) /uL Baso # (Auto) 0 (0-100) /uL PT 10.8 (10.1-12.7) SECONDS INR 1.0 (0.9-1.3) APTT 24 L (26.4-36.2) SECONDS Sodium 140 (137-145) mmol/L Potassium 3.2 L (3.4-5.1) mmol/L Chloride 107 (98-107) mmol/L Carbon Dioxide 28 (22-32) mmol/L BUN 18 (9-20) mg/dL Creatinine 0.95 (0.66-1.25) mg/dL Estimated GFR > 60.0 (>60) mL/min BUN/Creatinine Ratio 18.9 (6-22) Glucose 149 H (80-110) mg/dL Calcium 9.5 (8.4-10.2) mg/dL Magnesium 2.3 (1.6-2.3) mg/dL Total Bilirubin 1.0 (0.2-1.3) mg/dL AST 30 (17-59) IU/L ALT 25 (<50) IU/L Alkaline Phosphatase 73 (38-126) U/L Total Creatine Kinase 63 (55-170) U/L CK-MB (CK-2) TNP CK-MB (CK-2) Rel Index TNP Troponin I < 0.012 (0.01-0.034) ng/mL Total Protein 6.4 (6.3-8.2) g/dL Albumin 3.8 (3.5-5.0) g/dL Globulin 2.6 (1.7-4.1) g/dL Albumin/Globulin Ratio 1.5 (1.0-2.8) Lipase 40 (23-300) U/L SARS-CoV-2 (PCR) (Negative) 04/11/21 Range/Units 11:10 WBC (4.5-11.0) X10^3/uL RBC (4.5-5.9) X10^6/uL Hgb (13.5-17.5) g/dL Hct (41-53) % MCV (80-100) fL MCH (26-34) PG MCHC (30-36) % RDW (11.6-14.8) % Plt Count (150-400) X10^3/uL Neut % (Auto) (50-75) % Lymph % (Auto) (25-40) % [place] % (Auto) (3-14) % Eos % (Auto) (2-4) % Baso % (Auto) (0-2) % Neut # (Auto) (1113-3061) /uL Lymph # (Auto) (6143-9255) /uL [place] # (Auto) (0-900) /uL Eos # (Auto) (0-450) /uL Baso # (Auto) (0-100) /uL PT (10.1-12.7) SECONDS INR (0.9-1.3) APTT (26.4-36.2) SECONDS Sodium (137-145) mmol/L Potassium (3.4-5.1) mmol/L Chloride (98-107) mmol/L Carbon Dioxide (22-32) mmol/L BUN (9-20) mg/dL Creatinine (0.66-1.25) mg/dL Estimated GFR (>60) mL/min BUN/Creatinine Ratio (6-22) Glucose (80-110) mg/dL Calcium (8.4-10.2) mg/dL Magnesium (1.6-2.3) mg/dL Total Bilirubin (0.2-1.3) mg/dL AST (17-59) IU/L ALT (<50) IU/L Alkaline Phosphatase (38-126) U/L Total Creatine Kinase (55-170) U/L CK-MB (CK-2) CK-MB (CK-2) Rel Index Troponin I (0.01-0.034) ng/mL Total Protein (6.3-8.2) g/dL Albumin (3.5-5.0) g/dL Globulin (1.7-4.1) g/dL Albumin/Globulin Ratio (1.0-2.8) Lipase (23-300) U/L SARS-CoV-2 (PCR) Negative (Negative) Urine Dip Bedside Urine Glucose Negative Bedside Urine Bilirubin + 1 Bedside Urine Ketone - Negative Urine Specific [place] 1.020 Bedside Urine Occult Blood - Negative Bedside Urine pH 6.0 Bedside Urine Protein +/- 15 Bedside Urine Urobilinogen - Negative Bedside Urine Nitrite - Negative Bedside Urine Leukocytes - Negative Esterase Imaging Data Chest x-ray: Radiologist's Impression: PROCEDURE:? XR CHEST 1V ? INDICATIONS:? chest pain ? TECHNIQUE:? One view of the chest was acquired.? ? COMPARISON:? [facility], CR, CHEST 2 VIEW, 04/13/2014, 11:09. ? FINDINGS:? ? Surgical changes and devices:? None.? ? Lungs and pleura:? Lungs are clear.? No pleural effusions or pneumothorax.? ? Mediastinum:? Mediastinal contours appear normal.? Heart size is normal.? ? Bones and chest wall:? No suspicious bony lesions.? Overlying soft tissues appear unremarkable.? ? IMPRESSION:? No acute cardiopulmonary findings ? ? ? Approved by: Aravind Bah M.D. on 04/11/2021 at 11:09? ECG Data Interpretation: Normal sinus rhythm. No acute ST-T changes. No axis deviation. MDM Narrative Medical decision making narrative: 81-year-old male with past medical history prostate cancer, hyperlipidemia presents to the ED for lightheadedness for 1 day. Concern for ACS versus dehydration versus electrolyte abnormalities versus anemia versus COVID-19. Will order labs, COVID-19 test, chest x-ray, EKG, troponin. Workup negative for acute findings. Patient's symptoms resolved prior to discharge. Discharged patient with ED return precautions. Patient verbalized understanding. <Miranda Suárez, DO - Last Filed: 04/15/21 19:07> Lab Data Labs: Lab Results 04/11/21 04/11/21 04/11/21 Range/Units 10:50 10:50 10:50 WBC 5.5 (4.5-11.0) X10^3/uL RBC 4.82 (4.5-5.9) X10^6/uL Hgb 14.4 (13.5-17.5) g/dL Hct 42.7 (41-53) % MCV 88.6 (80-100) fL MCH 29.9 (26-34) PG MCHC 33.7 (30-36) % RDW 13.4 (11.6-14.8) % Plt Count 162 (150-400) X10^3/uL Neut % (Auto) 77.1 H (50-75) % Lymph % (Auto) 15.1 L (25-40) % [place] % (Auto) 5.6 (3-14) % Eos % (Auto) 1.7 L (2-4) % Baso % (Auto) 0.5 (0-2) % Neut # (Auto) 4300 (0312-6336) /uL Lymph # (Auto) 800 L (8951-3916) /uL [place] # (Auto) 300 (0-900) /uL Eos # (Auto) 100 (0-450) /uL Baso # (Auto) 0 (0-100) /uL PT 10.8 (10.1-12.7) SECONDS INR 1.0 (0.9-1.3) APTT 24 L (26.4-36.2) SECONDS Sodium 140 (137-145) mmol/L Potassium 3.2 L (3.4-5.1) mmol/L Chloride 107 (98-107) mmol/L Carbon Dioxide 28 (22-32) mmol/L BUN 18 (9-20) mg/dL Creatinine 0.95 (0.66-1.25) mg/dL Estimated GFR > 60.0 (>60) mL/min BUN/Creatinine Ratio 18.9 (6-22) Glucose 149 H (80-110) mg/dL Calcium 9.5 (8.4-10.2) mg/dL Magnesium 2.3 (1.6-2.3) mg/dL Total Bilirubin 1.0 (0.2-1.3) mg/dL AST 30 (17-59) IU/L ALT 25 (<50) IU/L Alkaline Phosphatase 73 (38-126) U/L Total Creatine Kinase 63 (55-170) U/L CK-MB (CK-2) TNP CK-MB (CK-2) Rel Index TNP Troponin I < 0.012 (0.01-0.034) ng/mL Total Protein 6.4 (6.3-8.2) g/dL Albumin 3.8 (3.5-5.0) g/dL Globulin 2.6 (1.7-4.1) g/dL Albumin/Globulin Ratio 1.5 (1.0-2.8) Lipase 40 (23-300) U/L SARS-CoV-2 (PCR) (Negative) 04/11/21 Range/Units 11:10 WBC (4.5-11.0) X10^3/uL RBC (4.5-5.9) X10^6/uL Hgb (13.5-17.5) g/dL Hct (41-53) % MCV (80-100) fL MCH (26-34) PG MCHC (30-36) % RDW (11.6-14.8) % Plt Count (150-400) X10^3/uL Neut % (Auto) (50-75) % Lymph % (Auto) (25-40) % [place] % (Auto) (3-14) % Eos % (Auto) (2-4) % Baso % (Auto) (0-2) % Neut # (Auto) (6984-4272) /uL Lymph # (Auto) (1669-2112) /uL [place] # (Auto) (0-900) /uL Eos # (Auto) (0-450) /uL Baso # (Auto) (0-100) /uL PT (10.1-12.7) SECONDS INR (0.9-1.3) APTT (26.4-36.2) SECONDS Sodium (137-145) mmol/L Potassium (3.4-5.1) mmol/L Chloride (98-107) mmol/L Carbon Dioxide (22-32) mmol/L BUN (9-20) mg/dL Creatinine (0.66-1.25) mg/dL Estimated GFR (>60) mL/min BUN/Creatinine Ratio (6-22) Glucose (80-110) mg/dL Calcium (8.4-10.2) mg/dL Magnesium (1.6-2.3) mg/dL Total Bilirubin (0.2-1.3) mg/dL AST (17-59) IU/L ALT (<50) IU/L Alkaline Phosphatase (38-126) U/L Total Creatine Kinase (55-170) U/L CK-MB (CK-2) CK-MB (CK-2) Rel Index Troponin I (0.01-0.034) ng/mL Total Protein (6.3-8.2) g/dL Albumin (3.5-5.0) g/dL Globulin (1.7-4.1) g/dL Albumin/Globulin Ratio (1.0-2.8) Lipase (23-300) U/L SARS-CoV-2 (PCR) Negative (Negative) Urine Dip Bedside Urine Glucose Negative Bedside Urine Bilirubin + 1 Bedside Urine Ketone - Negative Urine Specific [place] 1.020 Bedside Urine Occult Blood - Negative Bedside Urine pH 6.0 Bedside Urine Protein +/- 15 Bedside Urine Urobilinogen - Negative Bedside Urine Nitrite - Negative Bedside Urine Leukocytes - Negative Esterase Discharge Plan Departure Patient Disposition: Home Clinical Impression: Light headedness Instructions: DI for Syncope in Adults (Fainting) Activity Restrictions/Additional Instructions: You were evaluated in the ED today for an episode of lightheadedness. Your workup including your labs, chest x-ray, EKG were without acute findings. Your symptoms were likely due to a vasovagal reaction and an upset stomach. Please return to the ED if you experience worsening symptoms. Please follow-up with your oncologist, PCP. Prescriptions: No Action CHOLECALCIFEROL (VITAMIN D) 2,000 iu PO Q DAY Qty: 0 0RF aspirin 81 MG tablet,chewable 81 mg PO QDAY Qty: 0 0RF fluticasone propionate [Flonase Allergy Relief] 9.9 ML spray,suspension 2 spray Intranasal QDAY Qty: 1 1RF tamsulosin [Flomax] 0.4 MG capsule,extended release 24hr 0.4 mg PO Q DAY Qty: 90 1RF lisinopril-hydrochlorothiazide 10 MG/12.5 MG tablet 1 tab PO QDAY Qty: 90 1RF ascorbic acid (vitamin C) [Vitamin C] 500 mg Tablet 500 mg PO DAILY 0RF zinc 25 mg Tablet 25 mg PO DAILY 0RF vitamin B complex [B Complex] Capsule 1 cap PO DAILY 0RF Fish Oil Capsule 1 cap PO DAILY 0RF Referrals: Regino Gonsales MD [Primary Care Provider] - <Miranda Suárez DO - Last Filed: 04/15/21 19:07> Cosign ED Attending Costanyaature Attestation: I was immediately available in the department for consultation. Documentation has been reviewed.
== END 2021-04-11 13:15 | disposition home or self-care (01) ==
PROVIDERS: Emergency Medicine; Emergency Provider Student in an Organized Health Care Education/Training Program; PCP Internal Medicine Hematology & Oncology
DX: R42 Dizziness and giddiness (principal); Z20.822 Contact with and (suspected) exposure to COVID-19; Z51.11 Encounter for antineoplastic chemotherapy; C61 Malignant neoplasm of prostate
CPT/HCPCS: 36415; 71045; 80053; 81003; 82550; 83690; 83735; 84484; 85025; 85610; 85730; 87635; 93005; 96402; 99214; 99284; C9803; J9217

== ENCOUNTER 2021-06-21 11:28 | Emergency (ER) | payer MEDICARE, OTHER, SELFPAY ==
[2021-06-21 11:36] VITALS: BP 131/69; PULSE 110; RESP 17; TEMP 36.5; O2SAT 99; BMI 25.0
--- NOTE | 2021-06-21 14:49 | DI.US.S_ITS ---
PROCEDURE: US PERIPH VENOUS UP EXTREM LT INDICATIONS: left arm swelling TECHNIQUE: Real-time imaging, as well as color and pulse Doppler interrogation, was performed of the left upper extremity deep veins from the inferior neck to the antecubital fossa. COMPARISON: [facility], CT, CT ANGIO HEAD AND NECK, 05/30/2021, 17:40. FINDINGS: The internal jugular vein, visualized portions of the subclavian vein, axillary, and brachial veins are free of intraluminal thrombus. Where physically possible, the veins are normally compressible. Color and pulse Doppler demonstrate normal intraluminal flow, with expected phasicity and pulsatility. Additional scanning of the cephalic and basilic veins of the superficial system demonstrate normal compressibility, without thrombus. Within the left supraclavicular region, there is a cystic structure with mild septations that measures 3.1 x 2.5 x 4.6 cm. No abnormal vascularity can be seen. IMPRESSION: Negative for deep venous thrombosis. Within the left supraclavicular region, there is a cystic lesion mild septations, which is nonspecific. If clinically appropriate, please consider ultrasound-guided percutaneous sampling/drainage. Dictated by: Thee Waddell M.D. on 06/21/2021 at 15:55 Approved by: Thee Waddell M.D. on 06/21/2021 at 15:57
--- NOTE | 2021-06-21 15:51 | ED_ITS ---
HPI - Extremity Problem General Chief complaint: Extremity Problem,Nontraumatic Stated complaint: States edema post stroke Time Seen by Provider: 06/21/21 14:53 Source: patient Mode of arrival: Ambulatory History of Present Illness HPI Narrative: Patient is an 81-year-old male history of prostate cancer started on radiation 3 weeks ago is who is admitted on 05/30/2021 to [facility] when he had a stroke. He had some numbness in tingling in his left hand and face. He says he was admitted there for few days, he does not have any lasting deficits. Over last 1-2 days he has noted some very mild swelling in his left hand and arm. He says sometimes it is still difficult to grasp sitting with his left hand but that may be residual from his recent neurologic event. He denies any chest pain or palpitations. No other deficits. Concerned for the mild edema in his left. Related Data Home Medications Medication Instructions Recorded Confirmed CHOLECALCIFEROL (VITAMIN D) 2,000 iu PO Q DAY #0 07/27/10 04/11/21 aspirin 81 mg chewable tablet 81 mg PO QDAY #0 12/17/15 04/11/21 ascorbic acid (vitamin C) 500 mg 500 mg PO DAILY 05/20/20 04/11/21 tablet (Vitamin C) omega-3 fatty acids 1 cap PO DAILY 05/20/20 04/11/21 vitamin B complex 1 cap PO DAILY 05/20/20 04/11/21 zinc 25 mg tablet 25 mg PO DAILY 05/20/20 04/11/21 Previous Rx's Medication Instructions Recorded fluticasone propionate 50 2 spray INTRANASAL QDAY #1 bot 06/22/16 mcg/actuation nasal spray,suspension (Flonase Allergy Relief) tamsulosin 0.4 mg capsule (Flomax) 0.4 mg PO Q DAY #90 cap 08/18/16 lisinopril 10 1 tab PO QDAY #90 tab 11/01/16 mg-hydrochlorothiazide 12.5 mg tablet Allergies Allergy/AdvReac Type Severity Reaction Status Date / Time ciprofloxacin [CIPROFLOXACIN] AdvReac Intermediate STOMACH/ELVIRA Verified 06/21/21 11:47 SEA Iodinated Contrast Media AdvReac Intermediate NAUSEA/RALPH Verified 06/21/21 11:47 ING Review of Systems Review of Systems Narrative: GENERAL: Denies chills, fatigue, malaise, fever, sweats, travel HEENT: Denies sinus pain, ear pain, sore throat, difficulty swallowing, neck pain RESPIRATORY: Denies dyspnea, cough, wheezing, hemoptysis, sputum. CARDIOVASCULAR: Denies chest pain, palpitations, orthopnea, edema GASTROINTESTINAL: Denies nausea, vomiting, abdominal pain, diarrhea, constipation, melena. : Denies dysuria, frequency, incontinence, hematuria, urinary retention, flank pain. MUSCULOSKELETAL: See HPI SKIN: No rash, no erythema, no pruritus NEUROLOGIC: Denies weakness, dizziness, headache, numbness, change in speech, confusion PSYCHIATRIC: No concerning psychosocial issues. 12 point review of systems is negative except for those stated above and HPI Patient History Medical History Acute diverticulitis Essential hypertension (07/15/15) History of cholecystectomy (11/18/15) History of herpes zoster (07/15/15) Thrombocytopenia (07/15/15) UTI (urinary tract infection) Surgical History Status post hernia repair Family History Father Heart disease Hypertension Stroke Social History Smoking Status: Never smoker alcohol intake: never substance use type: former substance user (stopped at the age of 37 years of age. 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 ) Smoking Status: Never smoker alcohol intake frequency: other Substance Use Type: does not use Exam Initial Vital Signs Initial Vital Signs: Vital Signs Temperature 97.7 F 06/21/21 11:36 Pulse Rate 110 H 06/21/21 11:36 Respiratory Rate 17 06/21/21 11:36 Blood Pressure 131/69 06/21/21 11:36 Pulse Oximetry 99 06/21/21 11:36 GENERAL: Alert pleasant well-appearing 81-year-old male HEENT: Head atraumatic,EOMI, pupils reactive, face symmetric, moist mucous membranes CARDIOVASCULAR: Regular rate and rhythm without murmurs, rubs or gallops. RESPIRATORY: Breath sounds equal bilaterally, no wheezes rales or rhonchi. ABDOMEN: Soft, nontender. Normoactive bowel sounds all 4 quadrants. No guarding or rebound. EXTREMITIES: Normal range of motion, no clubbing or edema. Neurovascularly intact Left upper extremity no appreciable significant swelling. He does have some very minor contusions on his left forearm no gross bony deformities. No significant erythema at distal radial pulse intact NEUROLOGICAL: Alert and oriented x4.Normal gait and speech. Cranial nerves II through XII grossly intact. Good [id number], good [id number], strength equal bilaterally, no dysarthria or aphasia, sensation in tact to soft touch bilaterally, no visual changes, no facial droop SKIN: Warm, dry, no laceration, no petechiae, no rashes or lesions. Course Orders Ordered: ED Orders 06/21/21 14:49 US periph venous up extrem lt Stat Vital Signs Vital signs: Vital Signs - 8 hr 06/21/21 11:36 06/21/21 17:38 06/21/21 17:58 Temperature 97.7 F Pulse Rate 110 H 78 Pulse Rate [Left Radial] 77 Respiratory Rate 17 16 Blood Pressure 131/69 144/81 H Pulse Oximetry 99 96 MDM - Extremity (Nontraumatic) Imaging Data US - DVT: Radiologist's Impression: PROCEDURE:? US PERIPH VENOUS UP EXTREM LT ? INDICATIONS:? left arm swelling ? TECHNIQUE:? Real-time imaging, as well as color and pulse Doppler interrogation, was performed of the left upper extremity deep veins from the inferior neck to the antecubital fossa.? ? COMPARISON:? [facility], CT, CT ANGIO HEAD AND NECK, 05/30/2021, 17:40. ? FINDINGS:? The internal jugular vein, visualized portions of the subclavian vein, axillary, and brachial veins are free of intraluminal thrombus.? Where physically possible, the veins are normally compressible.? Color and pulse Doppler demonstrate normal intraluminal flow, with expected phasicity and pulsatility.? Additional scanning of the cephalic and basilic veins of the superficial system demonstrate normal compressibility, without thrombus.? ? Within the left supraclavicular region, there is a cystic structure with mild septations that measures 3.1 x 2.5 x 4.6 cm.? No abnormal vascularity can be seen. ? ? IMPRESSION:? ? Negative for deep venous thrombosis. ? Within the left supraclavicular region, there is a cystic lesion mild septations, which is nonspecific.? If clinically appropriate, please consider ultrasound-guided percutaneous sampling/drainage.? ? MDM Narrative Medical decision making narrative: The patient has barely any appreciable left upper extremity edema. Concern initially for possible DVT. Ultrasound is negative for DVT but does show in the supraclavicular region this may or may not be causing some of the swelling that he may notice. He had a CT angio done a couple weeks ago which did not show any abnormality. He has a good strong distal radial pulse. This is not a mass but a cystic lesion. He is also currently being treated for prostate cancer with radiation. At this time I recommend he follow-up with his oncologist or his primary care provider. This may or may not need to be drained if it continues to cause problems Discharge Plan Departure Patient Disposition: Home Clinical Impression: Edema of left upper extremity Instructions: Edema Activity Restrictions/Additional Instructions: *You have been diagnosed with edema *What to do: You were found to have a like structure in the left neck region. This may not be causing some of your swelling. You may need to have it drained however not emergent at this time. Please discuss this with a primary care provider. or your oncologist *Continue to take medications as directed *Follow up with your primary care provider in 2-3 days or call [phone] *Return to ER if you should have increasing swelling and arm or neck, chest pain difficulty breathing numbness tingling weakness or any new, worsening or concerning symptoms Prescriptions: No Action CHOLECALCIFEROL (VITAMIN D) 2,000 iu PO Q DAY Qty: 0 0RF aspirin 81 MG tablet,chewable 81 mg PO QDAY Qty: 0 0RF fluticasone propionate [Flonase Allergy Relief] 9.9 ML spray,suspension 2 spray Intranasal QDAY Qty: 1 1RF tamsulosin [Flomax] 0.4 MG capsule,extended release 24hr 0.4 mg PO Q DAY Qty: 90 1RF lisinopril-hydrochlorothiazide 10 MG/12.5 MG tablet 1 tab PO QDAY Qty: 90 1RF ascorbic acid (vitamin C) [Vitamin C] 500 mg Tablet 500 mg PO DAILY 0RF zinc 25 mg Tablet 25 mg PO DAILY 0RF vitamin B complex [B Complex] Capsule 1 cap PO DAILY 0RF Fish Oil Capsule 1 cap PO DAILY 0RF Referrals: Regino Gonsales MD [Primary Care Provider] -
[2021-06-21 17:38] VITALS: PULSE 77
[2021-06-21 17:58] VITALS: BP 144/81; PULSE 78; RESP 16; O2SAT 96
== END 2021-06-21 17:59 | disposition home or self-care (01) ==
PROVIDERS: Emergency Provider Emergency Medicine; PCP Internal Medicine Hematology & Oncology
DX: R60.0 Localized edema (principal); Z86.73 Personal history of transient ischemic attack (TIA), and cerebral infarction without residual deficits
CPT/HCPCS: 93971; 99281; 99283

== ENCOUNTER 2021-06-30 18:26 | Emergency (ER) | payer MEDICARE, OTHER, SELFPAY ==
[2021-06-30] VITALS (10 sets, daily range): BP systolic 135–170; BP diastolic 70–86; PULSE 64–76; RESP 16; TEMP 36.8; O2SAT 96–99; BMI 25.9
--- NOTE | 2021-06-30 23:52 | ED.MEDCLEAR ---
HPI - Medical Clearance General Chief complaint: Medical Clearance Stated complaint: Issues With Stroke/Adema Time Seen by Provider: 06/30/21 23:52 Source: patient Mode of arrival: Ambulatory History of Present Illness HPI Narrative: 81-year-old gentleman who had a stroke and was hospitalized at [facility] May 30 through June 03. Was a right thalamic CVA. He is having persistent and increasing swelling in the right hand and is wondering who he can talk to or what he can do to help address this issue. He is seeing a physical therapist on [address] but believes there may be more to be done. He also does not have a primary care doctor and has not had any post stroke follow-up. He otherwise is doing relatively well. He is traveling to [facility] daily for radiation therapy for his prostate cancer. He is finding that the logistics of living on [place] becoming more and more challenging. He has talked to his son who lives in [place] and would like to have him move down so he can offer more direct assistance. Mr. Hodge is considering this. Related Information Home Medications Medication Instructions Recorded Confirmed CHOLECALCIFEROL (VITAMIN D) 2,000 iu PO Q DAY #0 07/27/10 04/11/21 aspirin 81 mg chewable tablet 81 mg PO QDAY #0 12/17/15 04/11/21 ascorbic acid (vitamin C) 500 mg 500 mg PO DAILY 05/20/20 04/11/21 tablet (Vitamin C) omega-3 fatty acids 1 cap PO DAILY 05/20/20 04/11/21 vitamin B complex 1 cap PO DAILY 05/20/20 04/11/21 zinc 25 mg tablet 25 mg PO DAILY 05/20/20 04/11/21 Previous Rx's Medication Instructions Recorded fluticasone propionate 50 2 spray INTRANASAL QDAY #1 bot 06/22/16 mcg/actuation nasal spray,suspension (Flonase Allergy Relief) tamsulosin 0.4 mg capsule (Flomax) 0.4 mg PO Q DAY #90 cap 08/18/16 lisinopril 10 1 tab PO QDAY #90 tab 11/01/16 mg-hydrochlorothiazide 12.5 mg tablet Allergies Allergy/AdvReac Type Severity Reaction Status Date / Time ciprofloxacin [CIPROFLOXACIN] AdvReac Intermediate STOMACH/ELVIRA Verified 06/21/21 11:47 SEA Iodinated Contrast Media AdvReac Intermediate NAUSEA/RALPH Verified 06/21/21 11:47 ING Review of Systems Review of Systems Narrative: Remainder of complete review of systems is otherwise unremarkable except for that included in the HPI. Patient History Medical History Acute diverticulitis Essential hypertension (07/15/15) History of cholecystectomy (11/18/15) History of herpes zoster (07/15/15) Thrombocytopenia (07/15/15) UTI (urinary tract infection) Surgical History Status post hernia repair Family History Father Heart disease Hypertension Stroke Social History Smoking Status: Never smoker alcohol intake: never substance use type: former substance user (stopped at the age of 37 years of age. 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 ) Smoking Status: Never smoker alcohol intake frequency: other Substance Use Type: does not use Exam Initial Vital Signs Initial Vital Signs: Vital Signs Temperature 98.3 F 06/30/21 19:00 Pulse Rate 76 06/30/21 19:00 Respiratory Rate 16 06/30/21 19:00 Blood Pressure 170/86 H 06/30/21 19:00 Pulse Oximetry 98 06/30/21 19:00 General: Alert appropriate in no acute distress Respiratory: Able to speak in full sentences, no obvious respiratory distress Skin: No obvious rashes, warm and dry Neurologic: Grossly intact no obvious asymmetries or abnormalities Psych: appropriate insight and affect, cooperative Extremity: Right upper extremity does have some mild lymphedema and mild weakness in comparison to the left. He also has mild self-described ?tingling?paresthesia in a glove like distribution. There are no skin changes he has good distal pulses. This does not look like an upper extremity DVT. MDM - Medical Clearance MDM Narrative Medical decision making narrative: 81-year-old gentleman requesting help with establishing primary care and wondering what direction he should take to find additional help with the swelling in his left upper extremity. [facility] records are obtained in the does look like physical therapy home health as well as Occupational Health were ordered. He lives on [address] an occupational health is not available. There is a nurse practitioner only on [address] and he has been unable to stab issues with a primary care physician for post stroke follow-up. He is given instructions to contact [facility] residency Clinic either internal Medicine or Family Medicine to establish the hospital post stroke follow-up and begin looking for primary care physician. Eyes I have also given him a prescription for poststroke occupational therapy as well as phone numbers to call and try to arrange an occupational therapy evaluation Discharge Plan Departure Patient Disposition: Home Clinical Impression: Right thalamic stroke, Prostate cancer, Edema of hand Activity Restrictions/Additional Instructions: Thank you for coming in this evening I am sorry it has been so challenging for you to access the medical care that you need. For a hospital follow-up regarding your stroke and to try and establish a primary care physician I am going to suggest that you try calling [facility] residency clinics as your initial care was at the [facility]. When you call, explain that you were hospitalized for a stroke and need a post hospital and stroke follow-up and would like to establish a primary care doctor. The number for the internal medicine residency clinic is [phone] The number for the Family Medicine residency Clinic is [phone] Regarding the swelling in your left arm and hand. I do agree with all of the recommendations given to you by your physical therapist in would recommend that you continue your physical therapy care. I am also going to suggest that you try calling the occupational therapy department at [facility] to schedule of post hospitalization, post stroke evaluation of your left hand. I have given you a prescription for this but you may need a referral from 1 of the doctors in the residency clinic if an internal referral is not still in place from your recent hospitalization. The phone number for the occupational and physical therapy clinic is [phone] in [place]. Prescriptions: No Action CHOLECALCIFEROL (VITAMIN D) 2,000 iu PO Q DAY Qty: 0 0RF aspirin 81 MG tablet,chewable 81 mg PO QDAY Qty: 0 0RF fluticasone propionate [Flonase Allergy Relief] 9.9 ML spray,suspension 2 spray Intranasal QDAY Qty: 1 1RF tamsulosin [Flomax] 0.4 MG capsule,extended release 24hr 0.4 mg PO Q DAY Qty: 90 1RF lisinopril-hydrochlorothiazide 10 MG/12.5 MG tablet 1 tab PO QDAY Qty: 90 1RF ascorbic acid (vitamin C) [Vitamin C] 500 mg Tablet 500 mg PO DAILY 0RF zinc 25 mg Tablet 25 mg PO DAILY 0RF vitamin B complex [B Complex] Capsule 1 cap PO DAILY 0RF Fish Oil Capsule 1 cap PO DAILY 0RF Referrals: Miscellaneous,Doctor, MD [Primary Care Provider] -
[2021-07-01] VITALS: PULSE 76; O2SAT 97
[2021-07-01 00:30] VITALS: PULSE 75; O2SAT 96
[2021-07-01 00:31] VITALS: PULSE 78; O2SAT 96
[2021-07-01 00:35] VITALS: BP 158/76
== END 2021-07-01 00:40 | disposition home or self-care (01) ==
PROVIDERS: Emergency Provider Emergency Medicine
DX: I63.9 Cerebral infarction, unspecified (principal); C61 Malignant neoplasm of prostate; R60.0 Localized edema
CPT/HCPCS: 99281